=== PATIENT | male | born 1980 | race Caucasian/White ===

== ENCOUNTER → 2020-06-29 | Outpatient (CLI) | payer OTHER ==
--- NOTE | 2020-06-29 09:58 | Diagnostic Imaging Report ---
Lumbar spine at 9:24. Indication: Low back pain AP and lateral views were obtained. This exam is less than optimal due to the patient's body habitus. There are no prior studies available for comparison. The lateral view shows the vertebral body heights and alignment to be generally within normal limits. There is mild narrowing of the disc spaces at every level of the lumbar spine except L3-L4. There is no fracture or acute bony abnormality appreciated. There is no sign of a paraspinal mass. The sacroiliac joints are symmetrical and within normal limits. IMPRESSION: There is no evidence for an acute bony abnormality on this suboptimal exam. Dictated by: Dictated on workstation # [id number]
== END ==
LOC: RAD 08:52
PROVIDERS: ATTEND Family Medicine
DX: Z02.71 Encounter for disability determination (principal); M54.5 Low back pain
CPT/HCPCS: 72100